=== PATIENT | female | born 1985 | race Native Hawaiian/Other Pacific Islander ===

== ENCOUNTER 2018-05-09 13:18 | Emergency (ER) | payer BC ==
[2018-05-09 13:49] VITALS: BP 119/71; O2SAT 99
--- NOTE | 2018-05-09 14:07 | ED PDOC ---
HPI: Influenza Time Seen by Provider: 05/09/18 13:50 Chief Complaint: Flu-like Symptoms Chief Complaint (Provider): Flu-like Symptoms History Per: Patient Exam Limitations: no limitations Onset/Duration Of Symptoms: Days (x2) Additional complaint(s):: 33 year old female presents to the ED for evaluation of flu-like symptoms for the past two days. Patient reports fever, chills, throat pain, cough, ear pain (R > L), nasal congestion, and difficulty breathing with inspiration. Positive sick contacts, and patient has not received flu shot this year. PMD: Josh Rivas Past Medical History Reviewed: Historical Data, Nursing Documentation, Vital Signs Vital Signs: Last Vital Signs Temp 101.6 F H 05/09/18 13:45 Pulse 116 H 05/09/18 13:45 Resp 18 05/09/18 13:45 BP 119/71 05/09/18 13:45 Pulse Ox 99 05/09/18 13:45 - Medical History PMH: No Chronic Diseases - Surgical History Surgical History: No Surg Hx - Family History Family History: States: Unknown Family Hx - Social History Current smoker - smoking cessation education provided: No Alcohol: None Drugs: Denies - Home Medications Home Medications: Ambulatory Orders Medication Instructions Recorded Oseltamivir Phosphate [Tamiflu] 75 mg PO BID #10 capsule 05/09/18 - Allergies Allergies/Adverse Reactions: Allergies Allergy/AdvReac Type Severity Reaction Status Date / Time No Known Allergies Allergy Verified 05/09/18 13:46 Review of Systems ROS Statement: Except As Marked, All Systems Reviewed And Found Negative Constitutional: Positive for: Fever, Chills ENT: Positive for: Ear Pain (right greater than left), Nose Congestion, Throat Pain Respiratory: Positive for: Cough, Other (difficulty breathing) Physical Exam - Reviewed Nursing Documentation Reviewed: Yes Vital Signs Reviewed: Yes - Physical Exam Appears: Positive for: No Acute Distress Head Exam: Positive for: ATRAUMATIC, NORMOCEPHALIC Skin: Positive for: Normal Color, Warm ENT: Positive for: TM Is/Are (bilateral: unremarkable, TM visualized and all landmarks visualized with positive light reflection), Tonsillar Swelling (+1 bilaterally), Other (uvula non-edematous). Negative for: Sinus Pain/Drainage (maxillary or frontal tenderness to palpation), Pharyngeal Erythema, Tonsillar Exudate Neck: Positive for: Normal, Painless ROM, Supple Cardiovascular/Chest: Positive for: Regular Rate, Rhythm Respiratory: Positive for: Normal Breath Sounds. Negative for: Crackles, Rales, Rhonchi, Wheezing, Respiratory Distress Lymphatic: Positive for: Other (cervial nodes mildly swollen bilaterally +1) Neurologic/Psych: Positive for: Alert, Oriented (x3) Medical Decision Making Medical Decision Making: Time: 1354 Initial Impression: r/o flu, r/o strep Initial Plan: --U-preg (negative) --Influenza A B swab (positive) --Rapid strep swab (negative) --Urinalysis (no clinically significant results) 1509 Positive for flu A. Scribe Attestation: Documented by Deepthi Gerber, acting as a scribe for Brian Pitts PA-C. Provider Scribe Attestation: All medical record entries made by the Scribe were at my direction and personally dictated by me. I have reviewed the chart and agree that the record accurately reflects my personal performance of the history, physical exam, medical decision making, and the department course for this patient. I have also personally directed, reviewed, and agree with the discharge instructions and disposition. - ECG O2 Sat by Pulse Oximetry: 99 (RA) Pulse Ox Interpretation: Normal Disposition - Clinical Impression Clinical Impression: Influenza - Patient ED Disposition Is Patient to be Admitted: No Doctor Will See Patient In The: Office Counseled Patient/Family Regarding: Studies Performed, Diagnosis, Need For Followup, Rx Given - Disposition Referrals: Josh Rivas MD [Medical Doctor] - Disposition: Routine/Home Disposition Time: 15:12 Condition: STABLE Additional Instructions: Rest Fluids Dayquil Nyquil Chicken Soup RX- tamiflu Prescriptions: Oseltamivir Phosphate [Tamiflu] 75 mg PO BID #10 capsule Instructions: Flu, Adult (DC), Flu Forms: [employer] ([place]rainian)
[2018-05-09 15:12] LABS: SQUAMOUS EPITHIAL 1 /hpf (0-5); URINE BACTERIA RARE (<OCC); URINE BILIRUBIN NEGATIVE (NEGATIVE); URINE BLOOD MODERATE (NEGATIVE); URINE CLARITY SLIGHTY-CLOUDY (Clear); URINE COLOR YELLOW (YELLOW); URINE GLUCOSE (UA) NEG (NEGATIVE); URINE LEUKOCYTE ESTERASE TRACE Leu/uL (Negative); URINE PROTEIN NEGATIVE (NEGATIVE); URINE UROBILINOGEN 0.2-1.0 mg/dL (0.2-1.0)
[2018-05-09 15:52] VITALS: TEMP 100
[2018-05-09 15:53] VITALS: PULSE 94; RESP 16
== END 2018-05-09 15:52 | disposition home or self-care (01) ==
LOC: H.ER 13:18
DX: J11.1 Influenza due to unidentified influenza virus with other respiratory manifestations (principal)